=== PATIENT | male | born 1965 | race Caucasian/White ===

== ENCOUNTER 2022-12-26 05:13 | Observation (INO) | payer OTHER ==
[2022-12-23 15:44] LABS: BASOPHILS # (AUTO) 0.1 (0.0-0.1); BASOPHILS % 0.8 % (0.0-1.0); EOSINOPHILS # (AUTO) 0.1 (0.0-0.4); EOSINOPHILS % 1.2 % (0.0-6.0); HEMATOCRIT 47.3 % (38.2-49.6); HEMOGLOBIN 14.7 g/dL (14.0-18.0); LYMPHOCYTES # (AUTO) 1.9 (1.0-3.2); LYMPHOCYTES % 25.7 % (18.0-39.1); MEAN CORPUSCULAR HEMOGLOBIN 28.2 pg (28-32); MEAN CORPUSCULAR HGB CONC 31.1 g/dL (31-35); MEAN CORPUSCULAR VOLUME 90.6 fL (81-99); MONOCYTES # (AUTO) 0.7 (0.2-0.8); MONOCYTES % 8.9 % (4.4-11.3); NEUTROPHILS # (AUTO) 4.6 (2.1-6.9); NEUTROPHILS % 62.9 % (38.7-80.0); PLATELET COUNT 283 x10e3/uL (140-360); RED BLOOD COUNT 5.22 x10e6/uL (4.3-5.7); RED CELL DISTRIBUTION WIDTH 13.6 % (11.7-14.4)
[2022-12-23 16:05] LABS: INR 0.81; PROTHROMBIN TIME 11.6 seconds (11.9-14.5)
[2022-12-23 16:06] LABS: PARTIAL THROMBOPLASTIN TIME 27.7 seconds (23.8-35.5)
[2022-12-23 16:12] LABS: ANION GAP 16.5 mmol/L (8-16); CALCIUM 9.3 mg/dL (8.4-10.2); CREATININE, SERUM 2.72 mg/dL (0.72-1.25); POTASSIUM 4.5 mmol/L (3.5-5.1)
[~2022-12-26] VITALS: Ht 182.9 cm; Wt 117.9 kg
[~2022-12-26 05:13] MED LIST: ASPIRIN81 MG PO; CRESTOR20 MG; FISH OIL 1,0001 EAC7; GLIMEPIRIDE2 MG PO; LANTUS 3ML100 UNITS/; MULTI-VITAMIN1 EACH PO; [UNRECOGNIZED DRUG - OTHER]
[2022-12-26] MEDS ORDERED: CEFAZOLIN SODIUM 2 GM ONE (06:18)
[2022-12-26] MEDS ORDERED: LACTATED RINGER'S 1,000 ML ONE (06:18)
[2022-12-26] MEDS ORDERED: SUGAMMADEX SODIUM 200 MG/2 ML VIAL IV ONE (06:30)
[2022-12-26] MEDS ORDERED: ACETAMINOPHEN 1000 MG/100 ML 100 ML IV ONE (06:30)
[2022-12-26] MEDS ORDERED: THROMBIN FOR SOLN 5,000 UNIT VIAL ONE (06:55)
[2022-12-26] MEDS ORDERED: BUPIVACAINE 0.5%/EPI 30 ML SDV INJ ONE (06:55)
[2022-12-26] MEDS ORDERED: Vancomycin IV 1 GM VIAL ONE (06:55)
[2022-12-26] MEDS ORDERED: HYDROCODON-ACE1 EA12 PO (09:27)
[2022-12-26] MEDS: FENTANYL CITRATE/PF 100MCG/2 ML INJ ONE ×2 (09:28→09:44)
[2022-12-26] MEDS ORDERED: ACETAMINOPHEN 325 MG TAB PO PRN (09:30)
[2022-12-26] MEDS ORDERED: MAGNESIUM/ALUMINUM/SIMETHICONE 30 ML UDC PO PRN (09:30)
[2022-12-26] MEDS ORDERED: MORPHINE SULFATE 5 MG/ML VIAL IM PRN (09:30)
[2022-12-26] MEDS: LACTATED RINGER'S 1,000 ML IV SCH ×2 (09:30→17:50)
[2022-12-26] MEDS ORDERED: CEPACOL SORE THROAT LOZENGES PO PRN (09:30)
[2022-12-26] MEDS ORDERED: ZOLPIDEM TARTRATE 5 MG TAB PO PRN (09:30)
[2022-12-26] MEDS ORDERED: PROMETHAZINE HCL (IM) 25 MG/ML VIAL IM PRN (09:30)
[2022-12-26] MEDS: HYDROMORPHONE 1MG/1ML INJ ONE ×2 (09:56→10:16)
[2022-12-26] MEDS ORDERED: OXYCODONE/ACETAMINOPHEN 5-325 1 EACH TABLET ONE (10:54)
[2022-12-26] MEDS ORDERED: CARISOPRODOL 350 MG TAB ONE (10:54)
[2022-12-26 12:17] VITALS: BP 126/77; PULSE 69; RESP 14; TEMP 97.8; O2SAT 97
[2022-12-26 12:26] VITALS: BP 126/77; PULSE 69; RESP 14; TEMP 97.8; O2SAT 97
[2022-12-26] MEDS ORDERED: DEXTROSE 50% SYRINGE 50 ML IV PRN (12:30)
[2022-12-26] MEDS: ONDANSETRON HCL INJ 2MG/ML 2ML 2 MG/ML VIAL IV PRN (12:41)
[2022-12-26] MEDS: HYDROMORPHONE 2MG/ML 2 MG/ML ML IV PRN ×2 (12:42→16:46)
[2022-12-26] MEDS ORDERED: FENTANYL CITRATE/PF 100MCG/2 ML INJ ONE (13:15)
[2022-12-26] MEDS ORDERED: ONDANSETRON HCL INJ 2MG/ML 2ML 2 MG/ML VIAL ONE (13:37)
[2022-12-26] MEDS ORDERED: SEVOFLURANE INHAL SOLN 250 ML PEN BTL ONE (13:37)
[2022-12-26] MEDS ORDERED: EPHEDRINE SULFATE INJ 50 MG/ML VIAL ONE (13:37)
[2022-12-26] MEDS ORDERED: PROPOFOL IV EMULSION 10 MG/ML 20 ML VIAL ONE (13:37)
[2022-12-26] MEDS ORDERED: ROCURONIUM BROMIDE 10 MG/ML 5ML VIAL IV ONE (13:37)
[2022-12-26] MEDS ORDERED: POVIDONE IODINE 0.05% 0.05 % ML PO ONE (13:37)
[2022-12-26] MEDS ORDERED: DEXAMETHASONE SOD PHOS INJ 4 MG/ML SDV ONE (13:37)
[2022-12-26] MEDS ORDERED: LIDOCAINE HCL 2% LOCAL INJ 5 ML SDV VIAL INJ ONE (13:37)
[2022-12-26] MEDS: GLIMEPIRIDE 2 MG TAB PO SCH (16:50)
[2022-12-26 17:02] VITALS: BP 131/79; PULSE 82; RESP 18; TEMP 97.8; O2SAT 94
[2022-12-26] MEDS: INSULIN LISPRO 100 UNIT/1 ML 3ML VIAL SQ SCH ×2 (17:29→21:00)
[2022-12-26 20:00] VITALS: BP 130/75; PULSE 93; RESP 18; TEMP 97; O2SAT 96
[2022-12-26] MEDS: OXYCODONE/ACETAMINOPHEN 5-325 1 EACH TABLET PO PRN (20:41)
[2022-12-26] MEDS: CARISOPRODOL 350 MG TAB PO PRN (20:42)
[2022-12-27 01:03] VITALS: BP 124/81; PULSE 92; RESP 20; TEMP 97.5; O2SAT 96
[2022-12-27] MEDS: HYDROMORPHONE 2MG/ML 2 MG/ML ML IV PRN (01:13)
[2022-12-27] MEDS: ONDANSETRON HCL INJ 2MG/ML 2ML 2 MG/ML VIAL IV PRN (01:13)
[2022-12-27] MEDS: LACTATED RINGER'S 1,000 ML IV SCH (02:10)
[2022-12-27] MEDS: OXYCODONE/ACETAMINOPHEN 5-325 1 EACH TABLET PO PRN ×2 (04:25→08:30)
[2022-12-27] MEDS: CARISOPRODOL 350 MG TAB PO PRN ×2 (04:26→08:31)
[2022-12-27 05:15] VITALS: BP 133/76; PULSE 88; RESP 18; TEMP 97.2; O2SAT 97
[2022-12-27 08:00] VITALS: BP 129/74; PULSE 77; RESP 21; TEMP 98.4; O2SAT 100
[2022-12-27] MEDS: GLIMEPIRIDE 2 MG TAB PO SCH (08:31)
[2022-12-27] MEDS: INSULIN LISPRO 100 UNIT/1 ML 3ML VIAL SQ SCH (08:34)
[2022-12-27 08:42] VITALS: BP 129/74; PULSE 77; RESP 21; TEMP 98.4; O2SAT 100
[2022-12-27] MEDS ORDERED: MULTIVITAMINS/MINERALS TAB PO SCH (09:00)
[2022-12-27] MEDS ORDERED: NON-FORMULARY MEDICATION (Insulin Glargine (Lantus 3ML Pen) 50 UNITS) SUBD SCH (09:00)
[2022-12-27] MEDS ORDERED: INSULIN GLARGINE 100 UNITS/ML VIAL SQ SCH (09:00)
[2022-12-27] MEDS ORDERED: ASPIRIN 81 MG CHEW TAB PO SCH (09:00)
== END 2022-12-27 09:18 | disposition home or self-care (01) ==
LOC: OR 05:13 → PACU V 10:02 → MED/SURG 11:38
PROVIDERS: ADMIT Neurological Surgery; ATTEND Neurological Surgery
DX: M50.11 Cervical disc disorder with radiculopathy, high cervical region (principal); E11.9 Type 2 diabetes mellitus without complications; I10 Essential (primary) hypertension; E66.9 Obesity, unspecified; E78.5 Hyperlipidemia, unspecified; Z71.82 Exercise counseling; Z71.3 Dietary counseling and surveillance; Z01.810 Encounter for preprocedural cardiovascular examination; Z01.812 Encounter for preprocedural laboratory examination; Z01.818 Encounter for other preprocedural examination; Z79.82 Long term (current) use of aspirin; Z79.4 Long term (current) use of insulin; Z79.84 Long term (current) use of oral hypoglycemic drugs; Z68.35 Body mass index [BMI] 35.0-35.9, adult; Z85.528 Personal history of other malignant neoplasm of kidney; Z90.5 Acquired absence of kidney
CPT/HCPCS: 20931; 22551; 22845; 36415 ×3; 71046; 72040; 76000; 80048; 82948 ×2; 85025; 85610; 85730; 86850; 86900; 88304; 88311; 93005; C1713 ×2; G0378 ×2; J0131; J0690 ×2; J1100; J1170 ×3; J1815; J2001; J2405 ×2; J2704; J3010; J3370; J7121